=== PATIENT | female | born 1980 | race Caucasian/White ===

== ENCOUNTER 2018-02-01 19:05 | Emergency (ER) | payer OTHER ==
[2018-02-01] MEDS ORDERED: SODIUM CHLORIDE 1,000 ML IV STA (19:22)
[2018-02-01] MEDS ORDERED: METOCLOPRAMIDE HCL INJECTION 10 MG/2 ML VIAL IVPB ONE (19:22)
[2018-02-01 19:25] VITALS: BP 118/86; PULSE 88; TEMP 98.8; BMI 22.4
--- NOTE | 2018-02-01 19:26 | PDOC ---
Rapid Medical Evaluation Chief Complaint: Nausea/Vomiting Time Seen by Provider: 02/01/18 19:20 Medical Evaluation: Allergies Allergy/AdvReac Type Severity Reaction Status Date / Time No Known Allergies Allergy Verified 09/30/15 14:24 vomiting x1 day with nasal congestion x 4 day. headachex 1 day. no abdominal pain PE: patient alert ox3, sticky mucosa. BS clear,.throat clear A: nausea and vomiting P: cbc cmp serum IVF reglan patient to the ER for further management of caRE. 02/01/18 19:25 Discharge Disposition - Diagnosis Headache Qualifiers: Headache type: unspecified Headache chronicity pattern: acute headache Intractability: not intractable Qualified Code(s): R51 - Headache Nausea and vomiting Qualifiers: Vomiting type: unspecified Vomiting Intractability: non-intractable Qualified Code(s): R11.2 - Nausea with vomiting, unspecified - Referrals Referrals: Virginia Kohli MD [Primary Care Provider] - - Patient Instructions - Post Discharge Activity
--- NOTE | 2018-02-01 19:30 | PDOC ---
History of Present Illness - General History Source: Patient Exam Limitations: No Limitations - History of Present Illness Initial Comments: 02/01/18 20:13 The patient is a 37 year old female with no significant PMH who presents to the emergency department with nasal congestion, nausea, vomiting and headache since yesterday. The patient states she was experiencing nonbilious, nonbloody vomit since yesterday. The patient reports lack of appetite for the past four days. The patient noticed she had a headache today secondary to her persistent vomiting. The patient states she has been unable to tolerate PO intake. The patient states she has been admitted in the past for her persistent vomiting. She reports her last admission was approximately 2 years ago. Patient denies seasonal allergies. The patient denies chest pain, shortness of breath, headache and dizziness. Denies fever, chills, diarrhea and constipation. Denies dysuria, frequency, urgency and hematuria. Allergies: NKA Past surgical history: None reported. Social history: No reported alcohol, drug, or cigarette use. PCP: Dr. Kohli <Tiki Hummel - Last Filed: 02/01/18 20:13> <Shelby Hoffman - Last Filed: 02/01/18 23:38> - General Chief Complaint: Nausea/Vomiting Stated Complaint: VOMITING, HEADACHE,FEVER Time Seen by Provider: 02/01/18 19:20 Past History <Tiki Hummel - Last Filed: 02/01/18 20:13> - Immunization History Td Vaccination: Yes Immunization Up to Date: Yes - Suicide/Smoking/Psychosocial Hx Smoking Status: No Smoking History: Never smoked Number of Cigarettes Smoked Daily: 0 Cigars Per Day: 0 Hx Alcohol Use: No (sometimes) Drug/Substance Use Hx: No Substance Use Type: None <Shelby Hoffman - Last Filed: 02/01/18 23:38> - Past Medical History Allergies/Adverse Reactions: Allergies Allergy/AdvReac Type Severity Reaction Status Date / Time No Known Allergies Allergy Verified 02/01/18 19:22 Home Medications: Ambulatory Orders Ondansetron [Zofran Odt -] 4 mg SL TID PRN #15 od.tablet 02/01/18 Review of Systems - Review of Systems Able to Perform ROS?: Yes Comments:: 02/01/18 20:14 GENERAL/CONSTITUTIONAL: No fever or chills. No weakness. HEAD, EYES, EARS, NOSE AND THROAT: (+) Nasal congestion. No change in vision. No ear pain or discharge. No sore throat. GASTROINTESTINAL: (+) Nausea. (+) Vomiting. No diarrhea or constipation. GENITOURINARY: No dysuria, frequency, or change in urination. CARDIOVASCULAR: No chest pain or shortness of breath. RESPIRATORY: No cough, wheezing, or hemoptysis. MUSCULOSKELETAL: No joint or muscle swelling or pain. No neck or back pain. SKIN: No rash NEUROLOGIC: (+) Headache. No vertigo, loss of consciousness, or change in strength/sensation. ENDOCRINE: No increased thirst. No abnormal weight change. HEMATOLOGIC/LYMPHATIC: No anemia, easy bleeding, or history of blood clots. ALLERGIC/IMMUNOLOGIC: No hives or skin allergy. <Tiki Hummel - Last Filed: 02/01/18 20:13> *Physical Exam - Vital Signs Last Vital Signs Temp Pulse Resp BP Pulse Ox 98.8 F 88 16 118/86 99 02/01/18 19:22 02/01/18 19:22 02/01/18 19:22 02/01/18 19:22 02/01/18 19:22 - Physical Exam Comments: 02/01/18 19:50 Constitutional: (+) Pale. Awake, alert, oriented. No acute distress. Head: Normocephalic. Atraumatic Eyes: PERRL. EOMI. Conjunctivae are not pale. ENT: (+) Nasally when she speaks. (+) Mucous membranes are dry and intact. (+) Mild erythema in the posterior pharynx. Posterior pharynx without exudates. Uvula midline. Neck: Supple. Full ROM. No lymphadenopathy. Cardiovascular: Regular rate. Regular rhythm. S1, S2 regular. Distal pulses are 2+ and symmetric. Pulmonary/Chest: No evidence of respiratory distress. Clear to auscultation bilaterally No wheezing, rales or rhonchi. Abdominal: Soft and non-distended. There is no tenderness. No rebound, guarding or rigidity. No organomegaly. No palpable masses. Good bowel sounds. Back: No CVA tenderness. Musculoskeletal: No edema. No cyanosis. No clubbing. Full range of motion in all extremities. Nocalf tenderness. Radial/pedal pulses are intact and 2+ bilaterally Skin: Skin is warm and dry. No petechiae. No purpura. Neurological: Alert and oriented to person, place, and time. Cranial nerves II -XII are grossly intact. Normal speech. Strength is grossly symmetric. No sensory deficits. Psychiatric: Good eye contact. Normal interaction, affect and behavior. <Tiki Hummel - Last Filed: 02/01/18 20:13> - Vital Signs Last Vital Signs Temp Pulse Resp BP Pulse Ox 98.8 F 88 16 118/86 99 02/01/18 19:22 02/01/18 19:22 02/01/18 19:22 02/01/18 19:22 02/01/18 19:22 <Shelby Hoffman - Last Filed: 02/01/18 23:38> ED Treatment Course - LABORATORY CBC & Chemistry Diagram: 02/01/18 20:15 02/01/18 20:15 <Shelby Hoffman - Last Filed: 02/01/18 23:38> Medical Decision Making - Medical Decision Making 02/01/18 21:24 a/p: 37yo female with n/v since monday -states 50 episodes a day and unable to tolerate PO -no diarrhea -unable to tolerate water -nonbilious/nonbloody -states this has happened in the past -today developed a lira bc unable to eat or drink x 3 days -no abd pain -no dysuria -pt appears dehydrated -no meningeal signs, no f/c -nasal congestion -suspect viral syndrome with dehydration -will send labs, hydrate with ivf, reglan -will monitor and reassess 02/01/18 22:52 pt states feeling much better lira almost resolved no longer with nausea will po challenge and reassess 02/01/18 23:36 pt states lira resolved feeling much better tolerated po stable for d/c to home answered all uqestions - will need GI follow up <Shelby Hoffman - Last Filed: 02/01/18 23:38> *DC/Admit/Observation/Transfer <Tiki Hummel - Last Filed: 02/01/18 20:13> - Discharge Dispostion Decision to Admit order: No - Attestations Physician Attestion: 02/01/18 23:38 IDr. Shelby, DO, attest that this document has been prepared under my direction and personally reviewed by me in its entirety. I further attest, that it accurately reflects all work, treatment, procedures and medical decision -making performed by me. <Shelby Hoffman - Last Filed: 02/01/18 23:38> Diagnosis at time of Disposition: Headache Qualifiers: Headache type: unspecified Headache chronicity pattern: acute headache Intractability: not intractable Qualified Code(s): R51 - Headache Nausea and vomiting Qualifiers: Vomiting type: unspecified Vomiting Intractability: non-intractable Qualified Code(s): R11.2 - Nausea with vomiting, unspecified - Discharge Dispostion Disposition: HOME Condition at time of disposition: Stable - Prescriptions Prescriptions: Ondansetron [Zofran Odt -] 4 mg SL TID PRN #15 od.tablet PRN Reason: Nausea - Referrals Referrals: Virginia Kohli MD [Primary Care Provider] - Moose Patel MD [Staff Physician] - - Patient Instructions Printed Discharge Instructions: DI for Nausea -- Adult, DI for Vomiting -- Adult Additional Instructions: Please drink plenty of fluids. Please eat the BRAT diet (bananas, rice, apple sauce, and toast). Please return to the ED with any further concerns or complaints. Please follow up with Dr. Kohli in the next 2 days. Please make an appointment with the bass singer. Please take all medications as prescribed. - Post Discharge Activity
[2018-02-01] MEDS ORDERED: ACETAMINOPHEN 1000 MG/100 ML VIAL (NON FORMULARY) IVPB ONE (19:49)
[2018-02-01] MEDS ORDERED: SODIUM CHLORIDE 0.9% 1000 ML INFUS.BAG IV ONE (19:50)
[2018-02-01] MEDS ORDERED: METOCLOPRAMIDE HCL INJECTION 10 MG/2 ML VIAL ONE (20:26)
[2018-02-01] MEDS ORDERED: ACETAMINOPHEN INJECTION 100 ML IVPB ONE (20:27)
[2018-02-01 20:45] LABS: BASO % 0.3 % (0-2.0); EOS % 1.3 % (0-4.5); HEMATOCRIT 39.6 % (32.4-45.2); HEMOGLOBIN 13.2 GM/dL (10.7-15.3); LYMPH % 7.4 % (8-40); MCHC 33.3 g/dl (32.0-36.0); MEAN CELL VOLUME 87.3 fl (80-96); MEAN PLT VOLUME 7.8 fl (7.5-11.1); MONO % 3.7 % (3.8-10.2); NEUT % 87.3 % (42.8-82.8); PLATELET COUNT 263 K/MM3 (134-434); RBC 4.53 M/mm3 (3.60-5.2); RDW 13.8 % (11.6-15.6); WHITE BLOOD COUNT 9.3 K/mm3 (4.0-10.0)
[2018-02-01 21:28] LABS: ALBUMIN 3.9 g/dl (3.4-5.0); ANION GAP 10 (8-16); BILIRUBIN,TOTAL 0.6 mg/dL (0.2-1.0); BLOOD UREA NITROGEN 16 mg/dL (7-18); CALCIUM 8.9 mg/dL (8.5-10.1); CHLORIDE 106 mmol/L (98-107); CO2 25 mmol/L (21-32); CREATININE 0.7 mg/dL (0.55-1.02); GLUCOSE,RANDOM 89 mg/dL (74-106); LIPASE 165 U/L (73-393); POTASSIUM 4.5 mmol/L (3.5-5.1); SGPT/ALT 22 U/L (12-78); SODIUM 141 mmol/L (136-145)
[2018-02-01 21:33] LABS: ALK PHOS 53 U/L (45-117); SGOT/AST 15 U/L (15-37); TOT PROT 8.1 g/dl (6.4-8.2)
[2018-02-01 21:56] LABS: URINE APPEARANCE SLCLOUDY; URINE BILIRUBIN NEGATIVE (<2.0 mg/dL); URINE COLOR YELLOW; URINE GLUCOSE (UA) NEGATIVE (NEGATIVE); URINE KETONE 2+ (NEGATIVE); URINE LEUK ESTERASE NEGATIVE (NEGATIVE); URINE NITRITE NEGATIVE (NEGATIVE); URINE UROBILINOGEN NEGATIVE mg/dL (0.2-1.0)
[2018-02-01] MEDS ORDERED: KETOROLAC TROMETHAMINE 15 MG/ML VIAL IVPUSH ONE (22:52)
[2018-02-01] MEDS ORDERED: ACETAMINOPHEN 325 MG TABLET (FP) PO ONE (22:52)
[2018-02-01 22:58] LABS: URINE PROTEIN 1+ (NEGATIVE)
[2018-02-01 23:04] LABS: EPI CELLS FEW /HPF (FEW); URINE BACTERIA RARE /hpf (NONE SEEN); URINE MUCUS MANY
[2018-02-01] MEDS ORDERED: ACETAMINOPHEN 325 MG TABLET (FP) ONE (23:07)
[2018-02-01] MEDS ORDERED: KETOROLAC TROMETHAMINE 15 MG/ML VIAL ONE (23:07)
== END 2018-02-02 | disposition home or self-care (01) ==
LOC: JER 19:05
PROC: 3E0337Z Introduction of Electrolytic and Water Balance Substance into Peripheral Vein, Percutaneous Approach (ICD-10-PCS; principal; 2018-02-01)
PROC: 3E033GC Introduction of Other Therapeutic Substance into Peripheral Vein, Percutaneous Approach (ICD-10-PCS; 2018-02-01)
PROC: 3E033NZ Introduction of Analgesics, Hypnotics, Sedatives into Peripheral Vein, Percutaneous Approach (ICD-10-PCS; 2018-02-01)
PROC: 3E0333Z Introduction of Anti-inflammatory into Peripheral Vein, Percutaneous Approach (ICD-10-PCS; 2018-02-01)
DX: R51 Headache (principal); R11.2 Nausea with vomiting, unspecified
CPT/HCPCS: 36415; 80053; 81003; 81015; 83690; 84703; 85025; 99282-25; J0131; J7030